=== PATIENT | male | born 1960 | race Caucasian/White ===

== ENCOUNTER → 2017-07-19 | Outpatient (CLI) | payer BC ==
[~2017-07-19] MED LIST: ADVIL,NUPRIN,M200 MG PO; AMOXICILLIN500 MG PO; ARTHROTEC 501 TABLET PO; ASPERDRINK81 MG; BACTRIM,SEPT1 TABLET PO; BLOOD THINNER; CLARITIN10 M3 PO; ENDOCET 5-3251 EACH PO; LIPITOR40 MG PO; MORPHINE SULFAT15 M1 PO; PERCOCET 5/31 TABLET PO; PHENERGAN-CODE120 ML PO; PLETAL100 MG PO; PREDNISONE20 MG PO; PRILOSEC20 MG PO; ULTRAM50 MG PO; ZESTRIL20 MG PO; ZOCOR20 MG
== END | disposition home or self-care (01) ==
LOC: CDC 12:18
DX: Z01.810 Encounter for preprocedural cardiovascular examination (principal); I45.4 Nonspecific intraventricular block; R94.31 Abnormal electrocardiogram [ECG] [EKG]
CPT/HCPCS: 93000

== ENCOUNTER → 2017-10-21 | Outpatient (CLI) | payer BC ==
[~2017-10-21] MED LIST changes: +TESSALON PERLE100 MG PO
== END | disposition home or self-care (01) ==
LOC: AMB 08:50
PROC: 0JCR0ZZ Extirpation of Matter from Left Foot Subcutaneous Tissue and Fascia, Open Approach (ICD-10-PCS; principal; 2017-10-21)
DX: S90.852A Superficial foreign body, left foot, initial encounter (principal)